=== PATIENT | male | born 1945 | race African-American/Black ===

== ENCOUNTER 2017-09-28 18:35 | Emergency (ER) | payer MEDICARE, MEDICAID ==
[~2017-09-28] VITALS: Ht 172.7 cm; Wt 79.4 kg
[2017-09-28 18:35] VITALS: BP 152/76
[~2017-09-28 18:35] MED LIST: Morphine Sulfate 2mg/ml Inj IVP ONE
[2017-09-28 19:24] LABS: BASOPHILS % (AUTO) 0.6 % (0.0-2.0); EOSINOPHILS % (AUTO) 2.4 % (0.0-3.0); HEMOGLOBIN 9.7 G/DL (14.2-18.0); MEAN CORPUSCULAR VOLUME 81 FL (80-99); MONOCYTES % (AUTO) 8.3 % (1.0-10.0); NEUTROPHILS % (AUTO) 59.7 % (45.0-75.0); PLATELET COUNT 174 K/UL (150-450); RED BLOOD COUNT 3.69 M/UL (4.70-6.10); WHITE BLOOD COUNT 8.8 K/UL (4.8-10.8)
[2017-09-28] MEDS ORDERED: ACETAMINOPHEN325 M1 ORAL (19:28)
[2017-09-28] MEDS ORDERED: ARICEPT5 MG ORAL (19:29)
[2017-09-28] MEDS ORDERED: AMLODIPINE BESYL5 MG ORAL (19:29)
[2017-09-28] MEDS ORDERED: ATORVASTATIN CA40 MG ORAL (19:30)
[2017-09-28] MEDS ORDERED: COLACE100 MG ORAL (19:31)
[2017-09-28] MEDS ORDERED: FERROUS SULFAT325 MG ORAL (19:32)
[2017-09-28] MEDS ORDERED: HYDRALAZINE HC100 MG ORAL (19:33)
[2017-09-28] MEDS ORDERED: LACTULOSE10 GM/153 PO (19:37)
[2017-09-28] MEDS ORDERED: LEXAPRO10 MG ORAL (19:38)
[2017-09-28] MEDS ORDERED: LYRICA50 MG ORAL (19:39)
[2017-09-28 19:40] LABS: ANION GAP 8 mmol/L (5-15); BLOOD UREA NITROGEN 55 mg/dL (7-18); CALCIUM 8.5 MG/DL (8.5-10.1); CARBON DIOXIDE 25 MMOL/L (21-32); CHLORIDE 109 MMOL/L (98-107); CREATININE 3.3 MG/DL (0.55-1.30); POTASSIUM 3.9 MMOL/L (3.5-5.1); SODIUM 142 MMOL/L (136-145)
[2017-09-28] MEDS ORDERED: NITROFURANTOIN100 M2 ORAL (19:41)
[2017-09-28] MEDS ORDERED: MAGNESIUM CITR296 M1 PO (19:43)
[2017-09-28] MEDS ORDERED: SENNA8.6 M2 PO (19:45)
[2017-09-28] MEDS ORDERED: QUETIAPINE FUMA25 MG ORAL (19:46)
[2017-09-28] MEDS ORDERED: METOPROLOL TART25 MG ORAL (19:48)
[2017-09-28] MEDS ORDERED: FUROSEMIDE20 M1 ORAL (19:50)
[2017-09-28 19:51] LABS: ALANINE AMINOTRANSFERASE 10 U/L (12-78); ALBUMIN 2.9 G/DL (3.4-5.0); ALBUMIN/GLOBULIN RATIO 0.7 (1.0-2.7); ALKALINE PHOSPHATASE 80 U/L (46-116); ASPARTATE AMINO TRANSFERASE 11 U/L (15-37); BILIRUBIN,TOTAL 0.3 MG/DL (0.2-1.0); CREATINE KINASE 69 U/L (26-308)
[2017-09-28 19:53] LABS: APPEARANCE,URINE TURBID; BILIRUBIN, URINE NEGATIVE (NEGATIVE); COLOR,URINE PALE YELLOW; GLUCOSE, URINE (UA) NEGATIVE (NEGATIVE); KETONES,URINE NEGATIVE (NEGATIVE); LEUKOCYTE ESTERASE ,URINE 3+ (NEGATIVE); NITRITE,URINE NEGATIVE (NEGATIVE); PH,URINE 5 (4.5-8.0); PROTEIN,URINE 3+ (NEGATIVE); UROBILINOGEN,URINE NORMAL MG/DL (0.0-1.0)
--- NOTE | 2017-09-28 19:59 | Emergency Room Report ---
History of Present Illness General Chief Complaint: Altered Level of Consciousness Source: Patient, Medical Record Present Illness HPI Patient was sent in from a [place] [facility] facility. Apparently he had altered mentation. Paramedics found him with a slow heart rate. He has history of atrial fibrillation. He refused to come to the hospital. His convinced paramedics to bring the patient to the hospital. The patient denies chest pain shortness of breath headache nausea vomiting diarrhea dysuria. He complains of pain in bedsore lower back. States 9/10, constant and not radiating. The patient has hypertension, diabetes, anemia clinic kidney disease, major depressive disorder and bipolar disorder. He's had urinary tract infections in the past. DNR status on POLST. Allergies: Coded Allergies: GABAPENTIN (Unverified Allergy, Unknown, 09/28/17) Patient History Past Medical History: see triage record Social History: Denies: smoking Social History Narrative SNF - DNR Reviewed Nursing Documentation: PMH: Agreed, PSxH: Agreed Nursing Documentation-PMH Hx Cardiac Problems: Yes - a-fib Hx Diabetes: Yes Hx Dialysis: Yes Review of Systems All Other Systems: negative except mentioned in HPI Physical Exam Vital Signs Date Time Temp Pulse Resp B/P (MAP) Pulse Ox O2 Delivery O2 Flow Rate FiO2 09/28/17 18:12 97.9 48 1 152/76 98 Nasal Cannula 97.9 Sp02 EP Interpretation: reviewed, normal General Appearance: no apparent distress, Chronically Ill Head: normocephalic Eyes: bilateral eye normal inspection, bilateral eye PERRL ENT: moist mucus membranes Neck: supple Respiratory: lungs clear, normal breath sounds Cardiovascular #1: bradycardia, irregularly irregular Cardiovascular #2: 2+ radial (R) Gastrointestinal: normal inspection, normal bowel sounds, non tender, no mass, non-distended Musculoskeletal: back normal, normal range of motion Neurologic: alert, motor weakness, other - soft spoken, oriented - X2 Psychiatric: depressed affect Skin: normal inspection, warm/dry, pallor, other - sacral decub Medical Decision Making Diagnostic Impression: Primary Impression: NSTEMI (non-ST elevated myocardial infarction) Additional Impressions: Bradycardia UTI (urinary tract infection) Qualified Codes: N30.00 - Acute cystitis without hematuria Renal insufficiency Anemia Qualified Codes: D64.9 - Anemia, unspecified Sacral decubitus ulcer Qualified Codes: L89.159 - Pressure ulcer of sacral region, unspecified stage Atrial fibrillation Qualified Codes: I48.2 - Chronic atrial fibrillation ER Course Patient here with ALOC and slow heart rate. DDx: AMI, ACS, medication excess, electrolyte abnormality, occult infection. Evaluation with EKG, CXR, labs. Treatment consideration for atropine or pacing, though the patient is tolerating the HR without difficulty. Patient given morphine for painful decubitus. EKG without injury. CXR without infiltrates. Labs called with + troponin @ 19: 45. Renal insufficiency. UTI. Aspirin given. Antibiotics given. Discussed with Dr. Mckeon at [facility] and patient accepted for transfer. (In part this decision is made with consideration of DNR status.) Laboratory Tests Test 09/28/17 18:59 09/28/17 19:31 White Blood Count 8.8 K/UL (4.8-10.8) Red Blood Count 3.69 M/UL (4.70-6.10) L Hemoglobin 9.7 G/DL (14.2-18.0) L Hematocrit 30.0 % (42.0-52.0) L Mean Corpuscular Volume 81 FL (80-99) Mean Corpuscular Hemoglobin 26.3 PG (27.0-31.0) L Mean Corpuscular Hemoglobin Concent 32.4 G/DL (32.0-36.0) Red Cell Distribution Width 13.0 % (11.6-14.8) Platelet Count 174 K/UL (150-450) Mean Platelet Volume 7.2 FL (6.5-10.1) Neutrophils (%) (Auto) 59.7 % (45.0-75.0) Lymphocytes (%) (Auto) 29.0 % (20.0-45.0) Monocytes (%) (Auto) 8.3 % (1.0-10.0) Eosinophils (%) (Auto) 2.4 % (0.0-3.0) Basophils (%) (Auto) 0.6 % (0.0-2.0) Prothrombin Time 10.9 SEC (9.30-11.50) Prothrombin Time INR 1.0 (0.9-1.1) PTT 25 SEC (23-33) Sodium Level 142 MMOL/L (136-145) Potassium Level 3.9 MMOL/L (3.5-5.1) Chloride Level 109 MMOL/L (98-107) H Carbon Dioxide Level 25 MMOL/L (21-32) Anion Gap 8 mmol/L (5-15) Blood Urea Nitrogen 55 mg/dL (7-18) H Creatinine 3.3 MG/DL (0.55-1.30) H Estimate Glomerular Filtration Rate mL/min (>60) Glucose Level 81 MG/DL (74-106) Calcium Level 8.5 MG/DL (8.5-10.1) Total Bilirubin 0.3 MG/DL (0.2-1.0) Aspartate Amino Transferase (AST) 11 U/L (15-37) L Alanine Aminotransferase (ALT) 10 U/L (12-78) L Alkaline Phosphatase 80 U/L (46-116) Total Creatine Kinase 69 U/L (26-308) Troponin I 0.072 ng/mL (0.000-0.056) Pro-B-Type Natriuretic Peptide 5363 pg/mL (0-125) H Total Protein 6.9 G/DL (6.4-8.2) Albumin 2.9 G/DL (3.4-5.0) L Globulin 4.0 g/dL Albumin/Globulin Ratio 0.7 (1.0-2.7) L Digoxin Level < 0.2 NG/ML (0.5-2.0) L Urine Color Pale yellow Urine Appearance Turbid Urine pH 5 (4.5-8.0) Urine Specific [place] 1.015 (1.005-1.035) Urine Protein 3+ (NEGATIVE) H Urine Glucose (UA) Negative (NEGATIVE) Urine Ketones Negative (NEGATIVE) Urine Occult Blood 3+ (NEGATIVE) H Urine Nitrite Negative (NEGATIVE) Urine Bilirubin Negative (NEGATIVE) Urine Urobilinogen Normal MG/DL (0.0-1.0) Urine Leukocyte Esterase 3+ (NEGATIVE) H Urine RBC 10-15 /HPF (0 - 0) H Urine WBC Tntc /HPF (0 - 0) H Urine Squamous Epithelial Cells None /LPF (NONE/OCC) Urine Bacteria Many /HPF (NONE) H EKG Diagnostic Results Rate: bradycardiac Rhythm: other - a fib ST Segments: no acute changes Rhythm Strip Diag. Results EP Interpretation: yes Rhythm: no PVC's, no ectopy, other - shaq Chest X-Ray Diagnostic Results Chest X-Ray Diagnostic Results : Chest X-Ray Ordered: Yes # of Views/Limited/Complete: 1 View Indication: Other Interpretation: no consolidation, no effusion, no pneumothorax Impression: Other Electronically Signed by: Tre Oro MD Last Vital Signs Date Time Temp Pulse Resp B/P (MAP) Pulse Ox O2 Delivery O2 Flow Rate FiO2 09/28/17 22:03 96.4 54 19 140/74 98 Room Air 96.4 Status: improved Disposition: XFER [facility] Condition: Serious Referrals: NON PHYSICIAN (PCP) Tre Oro M.D. Sep 28, 2017 19:59
[2017-09-28 20:51] VITALS: BP 140/74
[2017-09-28] MEDS ORDERED: cefTRIAXone 1 GM in NS 55 ML IVPB ONE (21:15)
[2017-09-28 22:03] VITALS: BP_SYST 140; BP_SYST 145; BP_DIAS 73; BP_DIAS 74
--- NOTE | 2017-09-29 12:10 | Diagnostic Imaging Report ---
Indication: Chest pain Comparison: 12/19/2011 A single view chest radiograph was obtained. Findings: Cardiomediastinal appearance is within normal limits for age with a prominent heart size and aorta. Pulmonary vascularity is appropriate. The diaphragmatic contour is smooth and costophrenic angles are sharp. No pleural effusions are identified. The bones are unremarkable. Impression: No acute findings
== END 2017-09-28 22:03 | disposition short-term general hospital (02) ==
LOC: EDBD 18:35 → EMR 18:40
DX: I21.4 Non-ST elevation (NSTEMI) myocardial infarction (principal); R00.1 Bradycardia, unspecified; N39.0 Urinary tract infection, site not specified; N28.9 Disorder of kidney and ureter, unspecified; D64.9 Anemia, unspecified; L89.159 Pressure ulcer of sacral region, unspecified stage; I48.91 Unspecified atrial fibrillation; Z66 Do not resuscitate; E11.9 Type 2 diabetes mellitus without complications
CPT/HCPCS: 36415; 71045; 80053; 80162; 81003; 82550; 83880; 84484; 85025; 85610; 85730; 87081; 87086; 87181; 93005; 96374; 96375; 99285; J0696; J2270; J2405

== ENCOUNTER 2017-10-28 21:10 | Inpatient (IN) | payer OTHER, MEDICAID ==
[~2017-10-28] VITALS: Ht 139.7 cm; Wt 74.8 kg
[~2017-10-28 21:10] MED LIST changes: +ACETAMINOPHEN325 M1 ORAL; +AMLODIPINE BESYL5 MG ORAL; +ARICEPT5 MG ORAL; +ATORVASTATIN CA40 MG ORAL; +COLACE100 MG ORAL; +FERROUS SULFAT325 MG ORAL; +FUROSEMIDE20 M1 ORAL; +HYDRALAZINE HC100 MG ORAL; +LACTULOSE10 GM/153 PO; +LEXAPRO10 MG ORAL; +LYRICA50 MG ORAL; +MAGNESIUM CITR296 M1 PO; +METOPROLOL TART25 MG ORAL; -Morphine Sulfate 2mg/ml Inj IVP ONE; +NITROFURANTOIN100 M2 ORAL; +QUETIAPINE FUMA25 MG ORAL; +SENNA8.6 M2 PO
[2017-10-28] MEDS ORDERED: Morphine Sulfate 4mg/ml Inj IVP ONE (21:15)
--- NOTE | 2017-10-28 21:18 | Emergency Room Report ---
History of Present Illness General Source: Patient Present Illness HPI This is a 72-year-old male with a history of atrial fibrillation on Coumadin. Also history of chronic kidney disease. Presents with chief complaint of chest pain that started tonight. Pain is substernal and area. No radiation. Initially 7 out of 10. Nurse at the [facility] gave him 3 nitroglycerin. Pain now down to a 4. No nausea no vomiting. No diaphoresis. Does feel short of breath. Allergies: Coded Allergies: GABAPENTIN (Unverified Allergy, Unknown, 09/28/17) NSAIDS (NON-STEROIDAL ANTI-INFLAMMA (Unverified Allergy, Unknown, 10/28/17) Patient History Past Medical History: see triage record, old chart reviewed, CAD, AFib, renal disease Past Surgical History: other Pertinent Family History: none Social History: Denies: smoking Immunizations: other Reviewed Nursing Documentation: PMH: Agreed; PSxH: Agreed Nursing Documentation-PMH Hx Cardiac Problems: Yes - a-fib Hx Diabetes: Yes Hx Dialysis: Yes Review of Systems Eye: Denies: eye pain, blurred vision ENT: Denies: ear pain, nose congestion, throat swelling Respiratory: Reports: shortness of breath; Denies: cough Cardiovascular: Reports: chest pain; Denies: palpitations Gastrointestinal: Denies: abdominal pain, diarrhea, nausea, vomiting Musculoskeletal: Denies: back pain, joint pain Skin: Denies: rash Neurological: Denies: headache, numbness Endocrine: Denies: increased thirst, increased urine Hematologic/Lymphatic: Denies: easy bruising All Other Systems: negative except mentioned in HPI Physical Exam Sp02 EP Interpretation: reviewed, normal General Appearance: well appearing, no apparent distress, alert, Chronically Ill Head: normocephalic, atraumatic Eyes: bilateral eye PERRL, bilateral eye EOMI ENT: hearing grossly normal, normal pharynx Neck: full range of motion, supple, no meningismus Respiratory: chest non-tender, decreased breath sounds, rales - at bases Cardiovascular #1: no murmur, irregularly irregular Gastrointestinal: normal bowel sounds, non tender, no mass, no organomegaly, no bruit, non-distended Musculoskeletal: back normal, normal range of motion, swelling - 2+ pitting edema, other - bilateral BKA Psychiatric: mood/affect normal Skin: warm/dry Medical Decision Making Diagnostic Impression: Primary Impression: Atrial fibrillation Qualified Codes: I48.2 - Chronic atrial fibrillation Additional Impressions: ACS (acute coronary syndrome) CHF (congestive heart failure) Qualified Codes: I50.9 - Heart failure, unspecified CKD (chronic kidney disease) Qualified Codes: N18.9 - Chronic kidney disease, unspecified ER Course Patient presents with chest pain and shortness of breath. Most likely has mild CHF. Coumadin was listed as one of his medication his INR is normal. No evidence of STEMI, PE, dissection or pneumonia to name a few. Patient is stable for transfer. Patient approved for admission here. I will contact Dr. Holland for admission based on insurance. Pt has [employer] Laboratory Tests Test 10/28/17 21:25 White Blood Count 9.0 K/UL (4.8-10.8) Red Blood Count 3.82 M/UL (4.70-6.10) L Hemoglobin 10.1 G/DL (14.2-18.0) L Hematocrit 30.2 % (42.0-52.0) L Mean Corpuscular Volume 79 FL (80-99) L Mean Corpuscular Hemoglobin 26.4 PG (27.0-31.0) L Mean Corpuscular Hemoglobin Concent 33.3 G/DL (32.0-36.0) Red Cell Distribution Width 13.0 % (11.6-14.8) Platelet Count 161 K/UL (150-450) Mean Platelet Volume 7.3 FL (6.5-10.1) Neutrophils (%) (Auto) 72.2 % (45.0-75.0) Lymphocytes (%) (Auto) 16.6 % (20.0-45.0) L Monocytes (%) (Auto) 6.7 % (1.0-10.0) Eosinophils (%) (Auto) 3.8 % (0.0-3.0) H Basophils (%) (Auto) 0.7 % (0.0-2.0) Prothrombin Time 12.0 SEC (9.30-11.50) H Prothromb Time International Ratio 1.1 (0.9-1.1) Activated Partial Thromboplast Time 28 SEC (23-33) Sodium Level 143 MMOL/L (136-145) Potassium Level 4.0 MMOL/L (3.5-5.1) Chloride Level 107 MMOL/L (98-107) Carbon Dioxide Level 28 MMOL/L (21-32) Anion Gap 8 mmol/L (5-15) Blood Urea Nitrogen 42 mg/dL (7-18) H Creatinine 2.5 MG/DL (0.55-1.30) H Estimat Glomerular Filtration Rate mL/min (>60) Glucose Level 100 MG/DL (74-106) Calcium Level 8.3 MG/DL (8.5-10.1) L Total Bilirubin 0.3 MG/DL (0.2-1.0) Aspartate Amino Transf (AST/SGOT) 17 U/L (15-37) Alanine Aminotransferase (ALT/SGPT) 12 U/L (12-78) Alkaline Phosphatase 80 U/L (46-116) Total Creatine Kinase 93 U/L (26-308) Creatine Kinase MB 2.5 NG/ML (0.0-3.6) Creatine Kinase MB Relative Index 2.6 Troponin I 0.036 ng/mL (0.000-0.056) Pro-B-Type Natriuretic Peptide 4576 pg/mL (0-125) H Total Protein 7.4 G/DL (6.4-8.2) Albumin 3.0 G/DL (3.4-5.0) L Globulin 4.4 g/dL Albumin/Globulin Ratio 0.7 (1.0-2.7) L Lab Results Impression labs with elevated BNP EKG Diagnostic Results Rhythm: other - afib ST Segments: other - NSST changes Rhythm Strip Diag. Results Rhythm Strip Time: 22:46 EP Interpretation: yes Rate: 80 Rhythm: no PVC's, no ectopy Other Impression afib Chest X-Ray Diagnostic Results Chest X-Ray Diagnostic Results : Chest X-Ray Ordered: Yes # of Views/Limited/Complete: 1 View Indication: Chest Pain EP Interpretation: Yes Interpretation: no consolidation, no effusion, no pneumothorax, other - CM Impression: No acute disease Electronically Signed by: Miguel Mack MD Status: improved Disposition: ADMITTED INPATIENT Condition: Serious MIGUEL MACK M.D. Oct 28, 2017 21:18
[2017-10-28 21:49] LABS: BASOPHILS % (AUTO) 0.7 % (0.0-2.0); EOSINOPHILS % (AUTO) 3.8 % (0.0-3.0); HEMATOCRIT 30.2 % (42.0-52.0); HEMOGLOBIN 10.1 G/DL (14.2-18.0); LYMPHOCYTES % (AUTO) 16.6 % (20.0-45.0); MEAN CORPUSCULAR VOLUME 79 FL (80-99); MONOCYTES % (AUTO) 6.7 % (1.0-10.0); NEUTROPHILS % (AUTO) 72.2 % (45.0-75.0); PLATELET COUNT 161 K/UL (150-450); RED BLOOD COUNT 3.82 M/UL (4.70-6.10)
[2017-10-28 21:59] LABS: ANION GAP 8 mmol/L (5-15); BLOOD UREA NITROGEN 42 mg/dL (7-18); CALCIUM 8.3 MG/DL (8.5-10.1); CARBON DIOXIDE 28 MMOL/L (21-32); CHLORIDE 107 MMOL/L (98-107); CREATININE 2.5 MG/DL (0.55-1.30); INR 1.1 (0.9-1.1); SODIUM 143 MMOL/L (136-145)
[2017-10-28 22:02] VITALS: BP 145/77
[2017-10-28 22:13] LABS: ALANINE AMINOTRANSFERASE 12 U/L (12-78); ALBUMIN/GLOBULIN RATIO 0.7 (1.0-2.7); ALKALINE PHOSPHATASE 80 U/L (46-116); ASPARTATE AMINO TRANSFERASE 17 U/L (15-37); BILIRUBIN,TOTAL 0.3 MG/DL (0.2-1.0); CKMB 2.5 NG/ML (0.0-3.6); CREATINE KINASE 93 U/L (26-308)
[2017-10-28] MEDS ORDERED: NAMENDA5 MG ORAL (23:27)
[2017-10-28] MEDS ORDERED: LEXAPRO10 MG ORAL (23:27)
[2017-10-28] MEDS ORDERED: HUMALOG100 UNIT/1 SUBQ (23:27)
[2017-10-28] MEDS ORDERED: SENNA8.6 M2 PO (23:27)
[2017-10-29 00:21] VITALS: BP 153/87
[2017-10-29 01:58] VITALS: BP 149/87
[2017-10-29] MEDS ORDERED: Lactulose 10gm/15ml UDC ORAL PRN (06:30)
[2017-10-29] MEDS ORDERED: Nitroglycerin Subl 0.4mg tab SL PRN (06:30)
[2017-10-29] MEDS: NovoLOG Insulin Flexpen SUBQ SCH ×4 (08:00→20:53)
[2017-10-29] MEDS ORDERED: Metoprolol 25mg tab ORAL SCH (09:00)
[2017-10-29] MEDS: Memantine 5 MG TAB ORAL SCH (09:00)
[2017-10-29 09:26] LABS: CHOLESTEROL 128 MG/DL (< 200); CREATINE KINASE 83 U/L (26-308); HDL CHOLESTEROL 53 MG/DL (40-60); TRIGLYCERIDES 54 MG/DL (30-150)
[2017-10-29] MEDS: Lyrica 50mg cap ORAL SCH ×2 (09:55→20:52)
[2017-10-29] MEDS: Donepezil 5mg Tab ORAL SCH (09:57)
[2017-10-29] MEDS: HydrALAZINE 50mg tab ORAL SCH ×2 (09:58→22:24)
[2017-10-29] MEDS: Docusate 100mg cap ORAL SCH ×2 (09:58→17:56)
[2017-10-29] MEDS: Heparin 5000 units/ml inj SUBQ SCH ×2 (10:04→20:51)
--- NOTE | 2017-10-29 10:23 | Diagnostic Imaging Report ---
Indication: Chest pain Technique: One view of the chest Comparison: 09/28/2017 Findings: Inspiration is suboptimal. The heart is borderline enlarged. The lungs and pleural spaces are clear. The aorta is tortuous. Findings are unchanged Impression: No acute process
--- NOTE | 2017-10-29 15:55 | Cardiology Report ---
APPROVED REPORT EXAM: Two-dimensional and M-mode echocardiogram with Doppler and color Doppler. INDICATION Chest Pain M-Mode DIMENSIONS IVSd2.1 (0.7-1.1cm)Left Atrium (MM)5.2 (1.6-4.0cm) LVDd5.9 (3.5-5.6cm)Aortic Root4.1 (2.0-3.7cm) PWd1.8 (0.7-1.1cm)Aortic Cusp Exc.1.4 (1.5-2.0cm) IVSs2.4 cm LVDs5.3 (2.5-4.0cm) PWs1.6 cm Normal left ventricular chamber size, systolic function and wall motion. Left ventricular ejection fraction estimated to be 50-55%. Mild left ventricular hypertrophy by 2-D. No evidence of pericardial effusion . Moderate bi-atrial enlargements . Right ventricular chamber sizes is within normal limits. Focal aortic valve sclerosis with adequate cusp excursion. Echo density of the Aortic leaflet, cannot r/o vegetation. Heavy Thickened mitral valve leaflets with normal excursion. Heavy Mitral annulus and aortic root calcification. Normal pulmonic valve structure. Normal tricuspid valve structure. Subcostal views not obtained due pts position . A color flow and spectral Doppler study was performed and revealed: Moderate aortic regurgitation. Peak aortic valve gradient of 10 mm Hg and a mean of 5 mmHg. Aortic valve area 1.6 cm2 calculated by continuity equation. Moderate mitral regurgitation. Normal left ventricular diastolic function . Mild tricuspid regurgitation. Tricuspid systolic velocities suggests peak right ventricular systolic pressure of 41 mmHg,consistent with mild pulmonary hypertension. No Pulmonic regurgitation present. Consider GARRETT, if clinically indicated.
[2017-10-29] MEDS ORDERED: Acetaminophen 650 MG SUPP RECTAL PRN ×2 (17:30→18:00)
[2017-10-29 20:00] VITALS: BP 143/71
[2017-10-29] MEDS: Sennosides 8.6mg ORAL SCH (20:52)
[2017-10-29] MEDS: Atorvastatin 20mg tab ORAL SCH (20:53)
[2017-10-29] MEDS ORDERED: Sennosides 8.6mg ORAL SCH (21:00)
[2017-10-30] VITALS (7 sets, daily range): BP systolic 119–138; BP diastolic 67–86
[2017-10-30] MEDS: HydrALAZINE 50mg tab ORAL SCH ×3 (05:39→21:53)
[2017-10-30] MEDS: NovoLOG Insulin Flexpen SUBQ SCH ×4 (06:30→21:00)
[2017-10-30 07:09] LABS: ANION GAP 7 mmol/L (5-15); BLOOD UREA NITROGEN 42 mg/dL (7-18); CARBON DIOXIDE 28 MMOL/L (21-32); CHLORIDE 108 MMOL/L (98-107); CREATININE 2.6 MG/DL (0.55-1.30); POTASSIUM 3.7 MMOL/L (3.5-5.1); SODIUM 143 MMOL/L (136-145)
[2017-10-30 07:40] LABS: BASOPHILS % (AUTO) 0.9 % (0.0-2.0); EOSINOPHILS % (AUTO) 3.1 % (0.0-3.0); HEMATOCRIT 26.2 % (42.0-52.0); HEMOGLOBIN 8.7 G/DL (14.2-18.0); LYMPHOCYTES % (AUTO) 26.9 % (20.0-45.0); MEAN CORPUSCULAR VOLUME 79 FL (80-99); MONOCYTES % (AUTO) 6.9 % (1.0-10.0); NEUTROPHILS % (AUTO) 62.1 % (45.0-75.0); PLATELET COUNT 144 K/UL (150-450); RED CELL DISTRIBUTION WIDTH 13.4 % (11.6-14.8); WHITE BLOOD COUNT 7.9 K/UL (4.8-10.8)
--- NOTE | 2017-10-30 08:45 | History and Physical Report ---
DATE OF ADMISSION: 10/29/2017 CHIEF COMPLAINT AND REASON FOR HOSPITALIZATION: The patient admitted with chest pressure. HISTORY OF PRESENT ILLNESS: The patient is a resident of [facility]. He is a poor historian. He has chronic atrial fibrillation and chronic kidney disease. He presents with a sensation of chest pressure from the [facility]. He is also complaining of neck pain and back pain. He is bilateral below-knee amputee. He has a history of type 2 diabetes, diabetic kidney disease likely stage IV. He was found to have atrial fibrillation chronic. He has a POLST with DNR according to the halfway facility confirmed by his . MEDICATIONS: At the [facility] are reconciled include acetaminophen, amlodipine, atorvastatin, DSS, donepezil Lexapro, ferrous sulfate, Lasix, hydralazine, lispro sliding scale, lactulose, magnesium citrate, Namenda, metoprolol, nitrofurantoin, Lyrica, Seroquel, senna. HABITS: He has smoked in the distant past and quit. No heavy alcohol. Socially lives in an [facility]. I spoke to his on the phone. PAST SURGICAL HISTORY: Bilateral amputees. SYSTEM REVIEW: HEAD EYES, EARS, NOSE, AND THROAT: He wears eye glasses. His vision and hearing is good. ENDOCRINE: History of diabetes. PULMONARY: Denies shortness of breath at this time. CARDIAC: See above. GASTROINTESTINAL: Denies nausea or vomiting. GENITOURINARY: He has had urinary tract infection recently. No dysuria. NEUROLOGIC: He appears to be confused and possibly multi-infarct dementia. He is a poor historian. PHYSICAL EXAMINATION: GENERAL: The patient is lying in bed, no acute distress. VITAL SIGNS: Pulse is 59, blood pressure 128/73. HEAD EYES, EARS, NOSE, AND THROAT: Sclerae are nonicteric. Ocular motions intact in all directions. Oral mucosa slightly dry. NECK: No adenopathy or thyroid enlargement. LUNGS: Clear. HEART: Rhythm is atrial fibrillation. I hear no murmur. ABDOMEN: Soft without organomegaly or masses. EXTREMITIES: No edema, cyanosis or clubbing. There is a bilateral below-knee amputation. Arthritic changes in the hands bilateral. NEUROLOGIC: The patient is alert, but slow of speech. Ocular motions are intact in all directions. Smile is symmetric. 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 He moves all extremities. LABORATORY AND DIAGNOSTIC DATA: Pertinent labs show BUN 42, creatinine 2.5. Serial troponins 0.036, 0.050, 0.053. IMPRESSION: 1. Acute coronary syndrome, possible acute myocardial infarction. 2. Atrial fibrillation with slow ventricular response. 3. Abnormal echocardiogram with moderate mitral regurgitation, moderate aortic valve sclerosis, and aortic stenosis, ejection fraction of 45%. 4. Dementia. 5. Chronic kidney disease stage 3 to 4. 6. Diabetes. 7. Elevated BNP within normal chest x-ray. 8. Anemia likely anemia of chronic disease although he is microcytic. 9. Prior UTIs. PLAN: The patient will be watched for cardiac ischemia. Treat his pain symptomatically. Reduce beta blockers in view of his bradycardia and atrial fibrillation. We will respect wishes for DNR. Anoop Ling M.D. DR: tSas JOB#: [id number] CC:
[2017-10-30] MEDS: Donepezil 5mg Tab ORAL SCH (09:03)
[2017-10-30] MEDS: Docusate 100mg cap ORAL SCH ×2 (09:04→17:28)
[2017-10-30] MEDS: Lyrica 50mg cap ORAL SCH ×2 (09:09→21:53)
[2017-10-30] MEDS: Memantine 5 MG TAB ORAL SCH (09:09)
--- NOTE | 2017-10-30 09:45 | Consultation ---
DATE OF CONSULTATION: 10/29/2017 CARDIOLOGY CONSULTATION REASON FOR CONSULTATION: Chest pain with elevated troponin level. HISTORY OF PRESENT ILLNESS: This is a 72-year-old male with a history of ischemic heart disease as well as atrial fibrillation. He presented to the emergency room early this morning with chest pain that began last night. It is described as pressure like and substernal in area. No radiation noted and no response to nitroglycerin given x3 in the [facility]. The patient also feels some shortness of breath and notes chest pain similarly in the distant past but not recently. PAST MEDICAL HISTORY: Includes paroxysmal atrial fibrillation, hypertension, diabetes mellitus, peripheral artery disease with bilateral BKA, and chronic kidney disease. ALLERGIES: Include gabapentin and intolerance to nonsteroidal anti-inflammatory drugs. MEDICATIONS: Prior to admission, reviewed and reconciled. SOCIAL HISTORY: Denies smoking, alcohol, or substance abuse. Presently resides in a [facility] facility. REVIEW OF SYSTEMS: Difficult to obtain from the patient as he is a poor historian. However, pertinent data is outlined above as available. PHYSICAL EXAMINATION: VITAL SIGNS: Afebrile. Blood pressure 149/87, pulse 64, and respirations 12. NECK: Jugular venous pressure elevated. LUNGS: With few rales. CARDIAC: Irregularly irregular rhythm with normal S1 and S2. A 1/6 systolic apical murmur. ABDOMEN: Soft. Nontender. EXTREMITIES: With 1+ dependent edema in bilateral BKAs. LABORATORY AND DIAGNOSTIC DATA: Chest x-ray reveals no acute process. White count 9, hemoglobin 10.1. EKG atrial fibrillation, nonspecific ST-T wave changes. BUN 42, creatinine 2.5, potassium 4. Pro-natriuretic peptide 4576. Albumin 3.0. Troponin 0.036. Repeated 0.050. LDL cholesterol 70. IMPRESSION: 1. Acute on chronic diastolic congestive heart failure. 2. Acute coronary insufficiency. 3. Chronic kidney disease. 4. Mild protein-calorie malnutrition. 5. Atrial fibrillation, rate controlled. 6. Coagulopathy due to anticoagulant therapy, now with subtherapeutic INR. PLAN: 1. Re-dose warfarin for therapeutic INR. 2. Optimize antianginal regimen. 3. Serial troponins. 4. Titrate antihypertensives. 5. Cautious diuresis. 6. Monitor cardiorenal function. 7. Check echocardiogram. Tre Gregor Payne DR: MISTY JOB#: [id number] CC:
[2017-10-30] MEDS ORDERED: Warfarin Sodium 5mg ORAL ONE (17:00)
[2017-10-30] MEDS: Sennosides 8.6mg ORAL SCH (21:51)
[2017-10-30] MEDS: Atorvastatin 20mg tab ORAL SCH (21:51)
--- NOTE | 2017-10-30 21:55 | Wound Care Consultation ---
Wound Assessment Wound Assessment #1: Wound Number: 1 Wound Present on Admission: Yes New Wound: No Status Change of Wound: No Wound Location Body Site Modif: right, lower Wound Location Body Site: sacral Wound Type: pressure ulcer Ian Test: Does not Ian Pressure Ulcer Stage: III Wound Thickness: Full Thickness Wound Length: 2.0 Wound Width: 2.0 Wound Depth: 0.2 Percent of Wound [place]/Red: 100 Wound Drainage Amount: Scant Wound Drainage Odor: None/Absent Tissue Surrounding Wound: Erythemic Wound General Appearance: Reddened, Draining Wound Assessment #2: Wound Number: 2 Wound Present on Admission: Yes New Wound: No Status Change of Wound: No Wound Location Body Site Modif: upper Wound Location Body Site: sacral Wound Type: pressure ulcer Ian Test: Does not Ian Pressure Ulcer Stage: III Wound Thickness: Partial Thickness Wound Length: 1.0 Wound Width: 1.0 Wound Depth: 0.2 Percent of Wound [place]/Red: 100 Wound Drainage Description: Serosanguineous Wound Drainage Amount: Moderate Wound Drainage Odor: None/Absent Tissue Surrounding Wound: Erythemic Wound General Appearance: Reddened, Draining Wound Comment #1 Right lower sacral stage III pressure ulcer #2 Right upper sacral stage III pressure ulcer Recommendation -Local wound care per protocol -Keep clean and dry -Turn and reposition -Optimize nutrition -Offload both heels -Heel protector on both heels -Low air loss mattress -Assess and f/u accordingly for any changes DIONI COBB RN Oct 30, 2017 21:55
--- NOTE | 2017-10-31 05:32 | Discharge Summary ---
DATE OF ADMISSION: 10/29/2017 DATE OF DISCHARGE: 10/30/2017 PERTINENT HISTORY: The patient presented with chest pressure. He is a resident of [facility], a poor historian and has some dementia, chronic atrial fibrillation, and chronic kidney disease. He also has neck and back pain, type 2 diabetes, and chronic kidney disease. He has a POLST with a DNR directive. PERTINENT PHYSICAL FINDINGS: See the dictated History and Physical. HEENT: Throat was clear. LUNGS: Clear. HEART: Rhythm is atrial fibrillation. ABDOMEN: Soft without organomegaly or masses. EXTREMITIES: No edema. There are bilateral below-knee amputations. NEUROLOGIC: He is alert and slow in speech and confused. Weak in all four extremities. COURSE IN THE HOSPITAL: The patient is admitted for possible acute coronary syndrome, atrial fibrillation with a slow ventricular response. He had an abnormal echocardiogram with moderate mitral regurgitation, aortic sclerosis, and aortic stenosis and ejection fraction of 45%. The patient was observed and no return of chest pain. His troponins were borderline at 0.050, 0.053, and 0.054. His BNP was . Chest x-ray was clear. He remained stable. A tiny dose of beta-luna was stopped in view of bradycardia. He had decubiti [facility] and he was discharged to the [facility] in stable condition. FINAL DIAGNOSES: 1. Ischemic heart disease. 2. Chronic atrial fibrillation. 3. Bradycardia. 4. Chronic congestive heart failure, ejection fraction 45%. 5. Valvular heart disease with abnormal findings per echo as above. 6. Chronic kidney disease, stage 4. 7. Anemia of renal disease. 8. Adult onset diabetes. 9. 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 10. History of bilateral amputations. 11. History of Do Not Resuscitate directive. DISCHARGE DISPOSITION: On diabetic diet. Medications, per the discharge medication list. [facility] jail. The PMD does not come to this hospital. Anoop Ling M.D. DR: HERMINIA JOB#: [id number] CC:
--- NOTE | 2017-10-31 17:15 | Progress Note ---
DATE: 10/30/2017 CARDIOLOGY PROGRESS NOTE SUBJECTIVE: No recurring chest pain noted. No shortness of breath. Episodes of asymptomatic sinus bradycardia noted and improved off beta-luna. He has some neck and back pain. OBJECTIVE: VITAL SIGNS: Blood pressure 136/86, pulse 64, respirations 18, and afebrile. Oxygen saturation 100% on room air. NECK: Supple. No jugular venous distention. LUNGS: Clear. CARDIAC: Irregularly irregular. Normal S1, S2 with a 1/6 systolic murmur at the apex. ABDOMEN: Soft and nontender. EXTREMITIES: Without edema. IMPRESSION: 1. Chronic atrial fibrillation, rate controlled now. 2. Bradycardia resolved off beta-luna. 3. Chronic diastolic and systolic congestive heart failure. 4. Compensated valvular cardiomyopathy. 5. Ischemic heart disease with episodes of chest pain now with stable anginal pattern and negative troponin level. 6. Cerebrovascular disease with dementia. 7. Bilateral [id number] amputations and immobility. PLAN: 1. Continue current medical therapy. 2. Stable for transfer to custodial facility and further observation with titration of medications as needed. 3. Further chest pain episodes may be treated with short or long-acting nitrates depending on frequency. Tre Payne M.D. DR: RUT JOB#: [id number] CC:
== END 2017-10-30 22:29 | DRG 309 ==
LOC: EDBD 21:10 → EMR 21:30 → EDBEDREQ 23:21 → 2E 10-29 00:28 → EDBEDREQ 10-29 01:34 → OBSVTOIN 10-29 06:48
DX: I48.2 Chronic atrial fibrillation (principal); N18.4 Chronic kidney disease, stage 4 (severe); E46 Unspecified protein-calorie malnutrition; D68.32 Hemorrhagic disorder due to extrinsic circulating anticoagulants; I13.0 Hypertensive heart and chronic kidney disease with heart failure and stage 1 through stage 4 chronic kidney disease, or unspecified chronic kidney disease; I50.42 Chronic combined systolic (congestive) and diastolic (congestive) heart failure; I42.9 Cardiomyopathy, unspecified; E11.22 Type 2 diabetes mellitus with diabetic chronic kidney disease; Z87.891 Personal history of nicotine dependence; Z66 Do not resuscitate; F01.50 Vascular dementia, unspecified severity, without behavioral disturbance, psychotic disturbance, mood disturbance, and anxiety; Z89.512 Acquired absence of left leg below knee; Z89.511 Acquired absence of right leg below knee; D63.8 Anemia in other chronic diseases classified elsewhere; I08.0 Rheumatic disorders of both mitral and aortic valves; Z68.38 Body mass index [BMI] 38.0-38.9, adult; Z79.01 Long term (current) use of anticoagulants; T45.515A Adverse effect of anticoagulants, initial encounter; Y92.89 Other specified places as the place of occurrence of the external cause
CPT/HCPCS: 36415; 71045; 80048; 80053; 80061; 82550; 82553; 82962; 83880; 84484; 85025; 85610; 85730; 87070; 87081; 87181; 87205; 93005; 93306; 99285; J1815; J2405